=== PATIENT | female | born 1955 | race Caucasian/White ===

== ENCOUNTER 2022-12-10 18:03 | Emergency (ER) | payer OTHER, MEDICARE, MEDICAID, SELFPAY ==
--- NOTE | ~2022-12-10 | CT_ITS ---
EXAMINATION: CT PELVIS WITHOUT CONTRAST CLINICAL INFORMATION: Pain, trauma COMPARISON: None available. TECHNIQUE: Helical scanning was performed with submillimeter collimation through the pelvis. Sagittal and coronal multiplanar 2-D reconstructions were obtained. This CT examination was performed using dose optimization techniques as appropriate, variously including the following: *Automated exposure control *Adjustment of mA and/or kV according to patient size (this includes techniques or standardized protocols for targeted exams where dose is matched to indication/reason for exam; i.e. extremities or head) *Use of iterative reconstruction technique DLP: 633 mGy-cm FINDINGS: There is a nondisplaced fracture line involving the posterior left sacrum at the level of S3/S4 extending to the midline, such as seen on coronal image 310. Alignment across the hips is anatomic with mild joint space narrowing. Sacroiliac joints are intact. Pubic symphysis is intact with degenerative change. Degenerative change is also noted in the visualized lower lumbar spine. CT/CT pelvis wo IV con IMPRESSION: Nondisplaced fracture of the posterior left sacrum at the level of S3/S4.
--- NOTE | ~2022-12-10 | CT_ITS ---
EXAMINATION: CT HEAD WITHOUT CONTRAST CT CERVICAL SPINE WITHOUT CONTRAST CLINICAL INFORMATION: Trauma. Headache. COMPARISON: None available. TECHNIQUE: Contiguous axial imaging was performed through the head and cervical spine without intravenous administration of contrast. Sagittal and coronal reformatted images also obtained This CT examination was performed using dose optimization techniques as appropriate, variously including the following: *Automated exposure control *Adjustment of mA and/or kV according to patient size (this includes techniques or standardized protocols for targeted exams where dose is matched to indication/reason for exam; i.e. extremities or head) *Use of iterative reconstruction technique DLP: 1017 mGy-cm FINDINGS: The lateral, third and fourth ventricles are normally outlined. The cortical sulci and basal cisterns are normally outlined as well. There is no acute territorial defect, hemorrhage or midline shift. The extra-axial spaces are unremarkable. Calvarium: Intact. Maxillofacial sinuses and mastoids: Clear as visualized. Cervical spine: There is minimal anterolisthesis C5 over C6. There is diffuse mild cervical disc degenerative change with mild loss of disc space, endplate change and posterior osteophytes associated with diffuse facet osteoarthritic hypertrophic change with multilevel mild spinal canal and multilevel [id number] neural foraminal narrowing most pronounced at C3-C4. The bone mineralization is within normal limits. There is no fracture. The soft tissues are unremarkable. The visualized upper lung guerrero are clear. CT/CT head/brain wo IV con IMPRESSION: No acute intracranial abnormality. Cervical disc degenerative change with grade 1 anterolisthesis C5 over C6 felt to be chronic. No evidence for fracture.
--- NOTE | ~2022-12-10 | CT_ITS ---
EXAMINATION: CT HEAD WITHOUT CONTRAST CT CERVICAL SPINE WITHOUT CONTRAST CLINICAL INFORMATION: Trauma. Headache. COMPARISON: None available. TECHNIQUE: Contiguous axial imaging was performed through the head and cervical spine without intravenous administration of contrast. Sagittal and coronal reformatted images also obtained This CT examination was performed using dose optimization techniques as appropriate, variously including the following: *Automated exposure control *Adjustment of mA and/or kV according to patient size (this includes techniques or standardized protocols for targeted exams where dose is matched to indication/reason for exam; i.e. extremities or head) *Use of iterative reconstruction technique DLP: 1017 mGy-cm FINDINGS: The lateral, third and fourth ventricles are normally outlined. The cortical sulci and basal cisterns are normally outlined as well. There is no acute territorial defect, hemorrhage or midline shift. The extra-axial spaces are unremarkable. Calvarium: Intact. Maxillofacial sinuses and mastoids: Clear as visualized. Cervical spine: There is minimal anterolisthesis C5 over C6. There is diffuse mild cervical disc degenerative change with mild loss of disc space, endplate change and posterior osteophytes associated with diffuse facet osteoarthritic hypertrophic change with multilevel mild spinal canal and multilevel [id number] neural foraminal narrowing most pronounced at C3-C4. The bone mineralization is within normal limits. There is no fracture. The soft tissues are unremarkable. The visualized upper lung guerrero are clear. CT/CT cervical spine wo IV con IMPRESSION: No acute intracranial abnormality. Cervical disc degenerative change with grade 1 anterolisthesis C5 over C6 felt to be chronic. No evidence for fracture.
--- NOTE | ~2022-12-10 | CT_ITS ---
EXAMINATION: CT LUMBAR SPINE WITHOUT CONTRAST CLINICAL INFORMATION: Pain, midline tenderness, trauma COMPARISON: Radiographs from the same day TECHNIQUE: No intravenous contrast was utilized. Multidetector helical imaging was performed through the lumbar spine. Coronal and sagittal reformatted images were created. This CT examination was performed using dose optimization techniques as appropriate, variously including the following: *Automated exposure control *Adjustment of mA and/or kV according to patient size (this includes techniques or standardized protocols for targeted exams where dose is matched to indication/reason for exam; i.e. extremities or head) *Use of iterative reconstruction technique DLP; 633 mGy-cm FINDINGS: There is anatomic alignment of the lumbar vertebral bodies and posterior elements. Vertebral body heights are maintained. No lumbar fracture is seen. There is mild disc space narrowing at L4-L5. Mild endplate osteophytes are present throughout the lumbar spine. Multilevel mild to moderate facet arthropathy is present most prominently in the lower lumbar spine. Sacroiliac joints are intact. Nondisplaced fracture is noted in the posterior left sacrum extending to the midline at the level of S3-S4 (coronal image 47). Sacroiliac joints appear intact. CT/CT lumbar spine wo IV con IMPRESSION: 1. Nondisplaced fracture of the posterior left sacrum extending to the midline at the level of S3-S4. 2. No acute findings identified in the lumbar spine. Degenerative changes as noted above.
--- NOTE | ~2022-12-10 | XR_ITS ---
EXAMINATION: XR LUMBOSACRAL SPINE CLINICAL INFORMATION: Trauma. COMPARISON: None available. TECHNIQUE: Three views of the lumbosacral spine. FINDINGS: No evidence of acute compression deformity or traumatic subluxation. Mild intervertebral disc height loss at L4-L5 and L5-S1. Moderate facet arthropathy leading to certain degree of neural foraminal encroachment at L5-S1. SI joints are symmetric. No significant paraspinal soft tissue abnormality. Mild scattered atherosclerotic disease. XR/XR lumbar spine 2-3V IMPRESSION: 1. No acute compression deformity or malalignment. 2. Moderate lower lumbar spondylosis leading to certain degree of neural foraminal encroachment at L5-S1. If occult injury is clinically suspected, further evaluation with an MRI or CT could be obtained.
[2022-12-10 18:57] VITALS: BP 158/83; PULSE 60; RESP 14; TEMP 37; O2SAT 98; BMI 29.1
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
[2022-12-10] MEDS: Cyclobenzaprine HCl 10 MG TABLET PO (23:20)
[2022-12-10 23:22] VITALS: BP 141/83; PULSE 72; RESP 18; O2SAT 97
== END 2022-12-11 01:30 | disposition home or self-care (01) ==
PROVIDERS: Emergency Provider Emergency Medicine; PCP Internal Medicine
DX: S09.90XA Unspecified injury of head, initial encounter (principal); S32.10XA Unspecified fracture of sacrum, initial encounter for closed fracture; S39.012A Strain of muscle, fascia and tendon of lower back, initial encounter; S16.1XXA Strain of muscle, fascia and tendon at neck level, initial encounter; V13.4XXA Pedal cycle driver injured in collision with car, pick-up truck or van in traffic accident, initial encounter; Y93.55 Activity, bike riding; Y92.414 Local residential or business street as the place of occurrence of the external cause; Y99.9 Unspecified external cause status
CPT/HCPCS: 70450; 72100; 72125; 72131; 72192; 99284